=== PATIENT | male | born 1975 | race Caucasian/White ===

== ENCOUNTER 2018-11-25 11:57 | Inpatient (IN) | payer BC ==
[2018-11-25 12:51] VITALS: BMI 30.6
[2018-11-25] MEDS ORDERED: LORATADINE 10 MG TAB PO PRN (18:53)
--- NOTE | 2018-11-25 18:59 | MR ---
EXAMINATION TYPE: MR brain wo con DATE OF EXAM: 11/25/2018 COMPARISON: None HISTORY: Vertigo Standard multiplanar, multisequence MRI departmental protocol Multiplanar, multisequence images of the brain were acquired. Diffusion weighted imaging was performe d. FINDINGS: On the T2 and FLAIR images there are nodular areas of increased signal around the posterior left temporal lobe white matter adjacent to the lateral ventricle. There is a smaller 8 mm area of i ncreased signal in the right occipital lobe white matter. Largest focus in the left posterior tempora l lobe measures 15 mm. There is no midline shift. There is no mass effect. There are scattered white matter foci at the catalan-white matter junction of both temporal lobes the measure up to 5 mm. There is 9 mm cortical focus of increased signal left temporal lobe. There is 5 mm white matter high signal f ocus right parietal lobe. The left temporal lobe lesions show increased signal on the diffusion images that suggests an acute p rocess. The brainstem is intact. Cerebellum appears normal. Corpus callosum appears intact. Sella turcica power ears normal. I see no definite cortical infarct. IMPRESSION: Multiple white matter lesions as above and more noticeable in the left posterior temporal lobe. Small left temporal cortical lesion. Appearance is nonspecific. I would consider demyelinating disease and vasculitis and small vessel ischemia with acute infarct.
--- NOTE | 2018-11-25 19:00 | P.CNNES ---
History of Present Illness Consult date: 11/25/18 Reason for Consult: Dizziness Chief complaint: Dizziness History of Present Illness: REFERRING PHYSICIAN: Dr. Marcella Green HISTORY OF PRESENT ILLNESS: Thank you for allowing me to evaluate Mr. Willy Mathews. Mr. Mathews is a 43 year-old man with PMHx of DVT, pulmonary embolism, Medina's palsy presenting with a one-week history of feeling "off balance." Patient states that he was on his way to work last Sunday he started feeling a little bit off. 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 He thought it was due to sinuses causing some headache. Patient continued to feel the same although the symptoms were slightly less when he will watch TV or use his phone, he decided to go to his primary care doctor's clinic on Sunday because the symptoms were not getting better. At that time patient was taken to [facility], where he went to the emergency room and various tests were performed, and patient was discharged home that day. On Sunday night, patient got up from his bed to go to the bathroom. Patient washes hands and when he looked down in his hands, his hands looked blue. He had felt like a panic attack where he thought he was going to . His was at a camp at that time, so he called his mother who came over to his house and took him to [facility] again. Patient was discharged home that night.. Today, patient went to his primary care doctor again, recommended the patient to go to the emergency room. His symptoms have not gone worse, the patient still feels "off." Patient denies any room spinning sensation, blurry/double vision, weakness, numbness, tingling, recent sickness, fevers, ringing in his ear, ear pain, nausea/vomiting. patient denies ever having similar symptoms previously. Patient's parents are the patient's bedside. Patient had a normal delivery, full term baby. No hospitalization as a baby. Patient had some learning disability with dyslexia. Patient graduated from high school. His brother is alive and well, just has some hypotension as his medical issue. PAST MEDICAL HISTORY: DVT, pulmonary embolism, Medina's palsy PAST SURGICAL HISTORY: Appendectomy, hernia repair HOME MEDICATIONS: Eliquis 5 mg twice a day, multivitamins, loratadine ALLERGIES: Ampicillin, egg, pet dander SOCIAL HISTORY: Never smoker. Denies alcohol/drug abuse history. FAMILY HISTORY: History of clots on mother's side of the family with patient's aunt having DVT, and his grandmother and great grandparents with blood clotting disorders. No history of miscarriages and family REVIEW OF SYSTEMS: The 14 systems are reviewed and no additional points are identified compared to the review of systems documented history and physical PHYSICAL EXAMINATION: VITAL SIGNS: Temperature temperature 98.4 pulse rate 74 respiratory 17 blood pressure 116/64 O2 saturation 99% on room air GEN.: NAD, pleasant and cooperative HEENT: NCAT, sclera without icterus NECK: Supple SKIN AND EXTREMITIES: Warm to touch, no edema NEURO: MENTAL STATUS: Patient alert and oriented to self, place,. Able to name the current president. Speech fluent, able to name and repeat, following all commands readily. No right and left disorientation CRANIAL NERVES II THROUGH XII: II: Pupils are equal and reactive to light symmetrically. Visual drake are intact. III, IV, : No ptosis Extraocular movements full. Denies double vision No nystagmus. V: Facial sensation intact from V1-3. VII. face symmetric VIII: Hearing intact to finger rub bilaterally. IX, X: Symmetric palate elevation. XII: Shoulder shrug intact. XII: Tongue midline without fasciculation or atrophy. MOTOR: Normal bulk/tone. No pronator drift or tremor. Strength is 5/5 throughout all 4 extremities. SENSORY: Intact to light touch, temperature in all 4 extremities. Romberg is negative. REFLEXES: Brisk throughout. Toes are mute. Nadia's present. COORDINATION: Finger to nose intact. No dysmetria. GAIT: Normal based gait. Able to toe/heel/tandem walk. DIAGNOSTIC TESTING: LABORATORY: None available at this time IMAGING: None available at this time ASSESSMENT: Mr. Mathews is a 43 year-old man with PMHx of DVT, pulmonary embolism, Medina's palsy presenting with a one-week history of feeling "off balance." Patient with a history of DVT/PE in 2018 for which patient is on Apixaban. Patient's primary care doctor is planning to keep him on it for another year. Patient's family with a history of possible clotting disorder. Per patient, his primary care doctor has done a lot of blood workup. They thought patient may have a protein issue that was causing blood clots, but they have ruled that out. At that time, unclear etiology of patient's subjective feeling of disequilibrium. Patient denies any vertigo, double vision, and no focal deficits. His symptoms appear to have been worse when patient was driving, possible worsening with head turning. However, patient's exam shows upper motor neuron signs. Patient denies any neck pain. RECOMMENDATIONS: 1. MRI without contrast 2. MRI C-spine without contrast 3. Neurology will continue to follow Past Medical History Past Medical History: Deep Vein Thrombosis (DVT), Pulmonary Embolus (PE) Additional Past Medical History / Comment(s): blood clots a year ago, bells palsy History of Any Multi-Drug Resistant Organisms: None Reported Past Surgical History: Appendectomy, Hernia Repair Additional Past Surgical History / Comment(s): right femur fracture, hand surgery Past Anesthesia/Blood Transfusion Reactions: No Reported Reaction Past Psychological History: No Psychological Hx Reported Smoking Status: Never smoker Medications and Allergies Home Medications Medication Instructions Recorded Confirmed Type Apixaban [Eliquis] 5 mg PO BID 11/25/18 11/25/18 History Loratadine [Claritin] 10 mg PO DAILY PRN 11/25/18 11/25/18 History Multivitamins, Thera [Multivitamin 1 tab PO DAILY 11/25/18 11/25/18 History (formulary)] Allergies Allergy/AdvReac Type Severity Reaction Status Date / Time ampicillin Allergy Rash/Hives Verified 11/25/18 14:02 egg Allergy Rash/Hives Verified 11/25/18 14:02 pet dander Allergy Unknown Uncoded 11/25/18 14:02 Physical Examination - Vital Signs Vital Signs: Vital Signs Temp Pulse Resp BP Pulse Ox 11/25/18 15:30 98.4 F 74 17 116/64 99 11/25/18 12:45 98.2 F 78 17 126/78 97 11/25/18 12:42 98.2 F 78 17 126/78 97 Intake and Output 11/25/18 11/25/18 11/25/18 06:59 14:59 22:59 Other: Voiding Method Toilet Toilet # Voids 1 Weight 102.4 kg
[2018-11-25] MEDS: APIXABAN 5 MG TAB PO SCH (21:25)
[2018-11-26 06:22] LABS: Basophils % (A) 0 %; Eosinophils # (A) 0.2 k/uL (0-0.7); Eosinophils % (A) 3 %; HCT 46.1 % (39.0-53.0); HGB 15.6 gm/dL (13.0-17.5); Lymphocytes # (A) 2.2 k/uL (1.0-4.8); Lymphocytes % (A) 28 %; MCHC 33.9 g/dL (31.0-37.0); MCV 85.7 fL (80.0-100.0); Mean Platelet Volume 6.2; Monocytes # (A) 0.6 k/uL (0-1.0); Monocytes % (A) 8 %; Neutrophils # (A) 4.5 k/uL (1.3-7.7); Neutrophils % (A) 59 %; Platelet Count 277 k/uL (150-450); RBC 5.38 m/uL (4.30-5.90); RDW 13.1 % (11.5-15.5); WBC 7.6 k/uL (3.8-10.6)
[2018-11-26 06:42] LABS: African American GFR (CKD) >90 (>60 ml/min/1.73 sqM); Anion Gap 8 mmol/L; Blood Urea Nitrogen 18 mg/dL (9-20); Calcium 9.3 mg/dL (8.4-10.2); Carbon Dioxide 26 mmol/L (22-30); Chloride 103 mmol/L (98-107); Glucose 98 mg/dL (74-99); Potassium 4.3 mmol/L (3.5-5.1); Sodium 137 mmol/L (137-145)
[2018-11-26] MEDS: MULTIVITAMINS, THERA 1 EACH TAB PO SCH (09:19)
[2018-11-26] MEDS: APIXABAN 5 MG TAB PO SCH ×2 (09:19→21:34)
[2018-11-26] MEDS ORDERED: ALPRAZolam 0.25 MG TAB PO PRN (11:21)
--- NOTE | 2018-11-26 13:22 | P.PN ---
Progress Note - Text Progress Note Date: 11/26/18 SUBJECTIVE/INTERVAL EVENTS: No overnight events. Discussed with patient and his mother about the MRI brain finding. Plan going forward is to get MRI of the C-spine and thoracic spine with a possibility of getting a lumbar puncture tomorrow. PHYSICAL EXAMINATION: VITAL SIGNS: Temperature 98.2 pulse rate 61 respiratory 18 blood pressure 118/70 O2 saturation 98% on room air GEN.: NAD, pleasant and cooperative HEENT: NCAT, sclera without icterus NECK: Supple SKIN AND EXTREMITIES: Warm to touch, no edema NEURO: MENTAL STATUS: Patient alert and oriented to self, place,. Able to name the current president. Speech fluent, able to name and repeat, following all commands readily. No right and left disorientation CRANIAL NERVES II THROUGH XII: II: Pupils are equal and reactive to light symmetrically. Visual drake are intact. III, IV, : No ptosis Extraocular movements full. Denies double vision No nystagmus. V: Facial sensation intact from V1-3. VII. face symmetric VIII: Hearing intact to finger rub bilaterally. IX, X: Symmetric palate elevation. XII: Shoulder shrug intact. XII: Tongue midline without fasciculation or atrophy. MOTOR: Normal bulk/tone. No pronator drift or tremor. Strength is 5/5 throughout all 4 extremities. SENSORY: Intact to light touch, temperature in all 4 extremities. Romberg is negative. REFLEXES: Brisk throughout. Toes are mute. Nadia's present. COORDINATION: Finger to nose intact. No dysmetria. GAIT: Normal based gait. Able to toe/heel/tandem walk. DIAGNOSTIC TESTING: LABORATORY: None available at this time IMAGING: MRI brain w/o contrast 11/25/18: Multiple white matter lesions more noticeable in the left posterior temporal lobe. Small left temporal cortical lesion. Appearance is nonspecific. We'll consider demyelinating disease and vasculitis and small vessel ischemia with acute infarct. ASSESSMENT: Mr. Mathews is a 43 year-old man with PMHx of DVT, pulmonary embolism, Medina's palsy presenting with a one-week history of feeling "off balance." Patient with a history of DVT/PE in 2018 for which patient is on Apixaban. Patient's primary care doctor is planning to keep him on it for another year. Patient's family with a history of possible clotting disorder. Per patient, his primary care doctor has done a lot of blood workup. They thought patient may have a protein issue that was causing blood clots, but they have ruled that out. At that time, unclear etiology of patient's subjective feeling of disequilibrium. Patient denies any vertigo, double vision, and no focal deficits. His symptoms appear to have been worse when patient was driving, possible worsening with head turning. However, patient's exam shows upper motor neuron signs. Patient denies any neck pain. RECOMMENDATIONS: 1. MRI C-spine and T-spine without contrast; we'll consider lumbar puncture after spine imaging. 2. Neurology will continue to follow
--- NOTE | 2018-11-26 15:09 | ECHOF ---
Referral Reason:lv fx, clotting disorder MEASUREMENTS -------- HEIGHT: 182.9 cm WEIGHT: 97.1 kg BP: 120/70 IVSd: 1.1 cm (0.6 - 1.1) LVIDd: 4.7 cm (3.9 - 5.3) LVPWd: 1.2 cm (0.6 - 1.1) IVSs: 1.4 cm LVIDs: 3.5 cm LVPWs: 1.5 cm RVIDd: 5.2 cm (< 3.3) LAESV Index (A-L): 35.43 ml/m Ao Diam: 2.9 cm (2.0 - 3.7) LA Diam: 4.1 cm (2.7 - 3.8) AV Cusp: 2.1 cm (1.5 - 2.6) EPSS: 0.7 cm MV E Adam: 0.90 m/s MV DecT: 283 ms MV A Adam: 1.02 m/s MV E/A Ratio: 0.89 RAP: 5.00 mmHg RVSP: 17.83 mmHg MV EF SLOPE: 83.20 mm/s (70 - 150) MV EXCURSION: 2.19 cm (> 18.000) FINDINGS -------- Sinus rhythm. This was a technically adequate study. There is mild concentric left ventricular hypertrophy. Overall left ventricular systolic function i s normal with, an EF between 55 - 60 %. The diastolic filling pattern is normal for the age of the patient. The right ventricle is severely enlarged. Left atrium is moderately dilated by volume. The right atrium is mildly enlarged. Interatrial and interventricular septum intact. The aortic valve is trileaflet and appears structurally normal. There is no evidence of aortic regu rgitation. There is no evidence of aortic stenosis. The mitral valve leaflets are mildly thickened. Mild mitral regurgitation is present. pedunculated mass on atrial aspect of anterior mitral leaflet, consider Vegetation Mild tricuspid regurgitation present. There is no evidence of pulmonary hypertension. The right v entricular systolic pressure, as measured by Doppler, is 17.83mmHg. There is no pulmonic regurgitation present. The aortic root size is normal. The inferior vena cava was not well visualized. There is no pericardial effusion. CONCLUSIONS -------- 1. Sinus rhythm. 2. This was a technically adequate study. 3. There is mild concentric left ventricular hypertrophy. 4. Overall left ventricular systolic function is normal with, an EF between 55 - 60 %. 5. The diastolic filling pattern is normal for the age of the patient. 6. The right ventricle is severely enlarged. 7. Left atrium is moderately dilated by volume. 8. The right atrium is mildly enlarged. 9. Interatrial and interventricular septum intact. 10. The aortic valve is trileaflet and appears structurally normal. 11. There is no evidence of aortic regurgitation. 12. There is no evidence of aortic stenosis. 13. The mitral valve leaflets are mildly thickened. 14. Mild mitral regurgitation is present. 15. Mild tricuspid regurgitation present. 16. There is no evidence of pulmonary hypertension. 17. The right ventricular systolic pressure, as measured by Doppler, is 17.83mmHg. 18. There is no pulmonic regurgitation present. 19. The aortic root size is normal. 20. The inferior vena cava was not well visualized. 21. There is no pericardial effusion. [employer] HAND: Yarelis Gleason RDCS
[2018-11-26] MEDS ORDERED: LORazepam 2 MG/ML INJ IV STA (16:27)
--- NOTE | 2018-11-26 23:38 | MR ---
EXAMINATION TYPE: MR cspine/tspine/lspine wo con DATE OF EXAM: 11/26/2018 COMPARISON: MRI brain 11/25/2018 HISTORY: dizziness; upper motor neuron signs bilaterally TECHNIQUE: Multiplanar, multisequence imaging of the entire spine is performed without IV contrast. FINDINGS: INTRAMEDULLARY: The spinal cord has normal morphology and signal characteristics on all sequences. INTRAMEDULLARY/INTRADURAL: Unremarkable. EXTRAMEDULLARY: There are mild multilevel spondylosis changes, without candidate for nerve root impin gement. There is no focal disc extrusion/protrusion. There are a few scattered T1 hyperintense and T2 hyperintense foci within the bone marrow of the spin e, consistent with incidental hemangiomas. OTHER: Unremarkable. IMPRESSION: No acute process.
[2018-11-27] MEDS: MULTIVITAMINS, THERA 1 EACH TAB PO SCH (08:33)
[2018-11-27] MEDS: APIXABAN 5 MG TAB PO SCH ×2 (08:33→19:34)
--- NOTE | 2018-11-27 08:57 | HP ---
HISTORY AND PHYSICAL DATE OF SERVICE: 11/26/2018 CHIEF COMPLAINT: A 43-year-old white male, past medical history of DVT, pulmonary embolism, Medina's palsy, history of feeling off-balance with dizziness, got put in the hospital overnight to find out what is going on. Rule out stroke. MRI shows positive stroke, workup is pending at this time causing stroke imbalance. PAST MEDICAL HISTORY: DVT, pulmonary embolism, Medina's palsy. SURGICAL HISTORY: Appendectomy, hernia repair. HOME MEDICATIONS: 1. Eliquis 5 mg b.i.d. 2. Multivitamins. 3. Loratadine. ALLERGIES: AMPICILLIN. alcohol, drugs, smoking. 14 POINT REVIEW OF SYSTEMS: Negative except for mentioned above. PHYSICAL EXAMINATION: Blood pressure 110 to 120s/60s to 70s, O2 98% on room air, pulse 70s to 80s, temp 98. GENERAL: No acute distress. HEENT: Normocephalic, atraumatic. SKIN: Warm, dry to touch. Cranial nerves appear to be intact. Strength is 5/5 for extremities. Coordination shows no dysmetria on [id number] and tap. ASSESSMENT: 1. History deep venous thrombosis, acute stroke seen on MRI. 2. History of Medina's palsy, pulmonary embolism, deep venous thrombosis. RECOMMENDATION: 1. Workup including possible MALCOM, echo, carotid will also be done. 2. Await for Cardiology and Neurology input. AKUA / CARROL: [id number] /
--- NOTE | 2018-11-27 09:25 | P.CRDCN ---
History of Present Illness Consult date: 11/27/18 Requesting physician: Sekou Devries Reason for Consult (text): Possible mitral valve vegetation Chief complaint: Dizziness History of present illness: Is a 43-year-old gentleman with no prior documented history of hypertension, no diabetes, no hyperlipidemia, he is a nonsmoker. He does have history of DVT and PE approximately one year ago, was treated at [facility] and initiated on Eliquis. He was never determined exactly why the patient developed blood clots at that time. He presented to the hospital on this admission with symptoms of dizziness which started approximately one week ago. The dizziness persisted over that weekend, and patient became extremely fatigued and tired, he was unable to do his usual activities without becoming exhausted. Patient states at one point he became so dizzy, felt off balance, and felt as though he wouldpass out , he called EMS and was brought to the hospital for further evaluation and treatment. The patient underwent an MRI of the brain which revealed multiple white matter lesions more noticeable in the left posterior temporal lobe. Small left temporal cortical lesion. Appearance is nonspecific. Consideration of a demyelinating disease and vasculitis as well as small vessel ischemia with acute infarct. An MRI of the spine was also performed which did not reveal any acute process. An echocardiogram with Doppler study was performed which revealed a normal left ventricular systolic function. The mitral valve leaflets are mildly thickened, mild mitral regurgitation, pedunculated mass noted on the atrial aspect of the anterior mitral leaflet, consider vegetation. Because of this finding on echocardiogram cardiology consultation was requested. Patient denies any recent fever or chills, he is a nonsmoker, does not drink and does not use any type of drugs. Laboratory data reviewed, white blood cell count 7.6, hemoglobin 15.6, platelet count 277. Sodium 137, potassium 4.3, BUN 18 and creatinine 1.1. Blood pressure 116/60 with a heart rate in the 70s, temperature 98.4 is 99% on room air. Past Medical History Past Medical History: Deep Vein Thrombosis (DVT), Pulmonary Embolus (PE) Additional Past Medical History / Comment(s): blood clots a year ago, bells palsy History of Any Multi-Drug Resistant Organisms: None Reported Past Surgical History: Appendectomy, Hernia Repair Additional Past Surgical History / Comment(s): right femur fracture, hand myles rikki Past Anesthesia/Blood Transfusion Reactions: No Reported Reaction Past Psychological History: No Psychological Hx Reported Smoking Status: Never smoker Medications and Allergies Home Medications Medication Instructions Recorded Confirmed Type Apixaban [Eliquis] 5 mg PO BID 11/25/18 11/25/18 History Loratadine [Claritin] 10 mg PO DAILY PRN 11/25/18 11/25/18 History Multivitamins, Thera [Multivitamin 1 tab PO DAILY 11/25/18 11/25/18 History (formulary)] Allergies Allergy/AdvReac Type Severity Reaction Status Date / Time ampicillin Allergy Rash/Hives Verified 11/25/18 14:02 egg Allergy Rash/Hives Verified 11/25/18 14:02 pet dander Allergy Unknown Uncoded 11/25/18 14:02 Physical Exam Vitals: Vital Signs Temp Pulse Resp BP Pulse Ox 11/27/18 08:33 98.1 F 69 16 110/58 100 11/27/18 04:45 98.2 F 75 12 129/61 98 11/26/18 23:45 98.6 F 72 16 114/57 100 11/26/18 21:30 98.2 F 72 16 126/59 98 11/26/18 16:00 78 16 131/63 100 11/26/18 15:10 70 16 11/26/18 12:00 98.2 F 65 16 125/65 99 Intake and Output 11/26/18 11/27/18 11/27/18 22:59 06:59 14:59 Other: Voiding Method Toilet Toilet # Voids 3 1 Weight 101.4 kg PHYSICAL EXAMINATION: GENERAL: 83-year-old gentleman in no acute distress at the night HEENT: Head is atraumatic, normocephalic. Pupils equal, round. Sclera anicteric. Conjunctiva are clear. Mucous membranes of the mouth are moist. Neck is supple. There is no elevated jugular venous pressure. No carotid bruit is heard. HEART EXAMINATION: Heart S1, S2 normal. No murmur or gallop heard. CHEST EXAMINATION: Lungs are clear to auscultation and precussion. No chest wall tenderness is noted on palpation or with deep breathing. ABDOMEN: Soft, nontender. Bowel sounds are heard. No organomegaly noted. EXTREMITIES: 2+ peripheral pulses with no evidence of peripheral edema and no calf tenderness noted. NEUROLOGIC patient is awake, alert and oriented 3 . . Results 11/26/18 05:56 11/26/18 05:56 Current Medications Generic Name Dose Route Start Last Admin Trade Name Freq PRN Reason Stop Dose Admin Alprazolam 0.25 mg 11/26/18 11:21 Xanax PO Q8H PRN Anxiety Apixaban 5 mg 11/25/18 21:00 11/27/18 08:33 Eliquis PO 5 mg BID JAYY Administration Loratadine 10 mg 11/25/18 18:53 Claritin PO DAILY PRN Allergy Symptoms Multivitamins 1 each 11/26/18 09:00 11/27/18 08:33 Theragran PO 1 each DAILY JAYY Administration Intake and Output 11/26/18 11/27/18 11/27/18 22:59 06:59 14:59 Other: Voiding Method Toilet Toilet # Voids 3 1 Weight 101.4 kg 11/26/18 05:56 11/26/18 05:56 EKG Interpretations (text) No EKG performed Assessment and Plan Plan: Assessment and plan #1 symptoms of dizziness, unsteady gait, fatigue. MRI of the brain showed multiple white matter lesions more noticeable in the left posterior temporal lobe. Small left temporal cortical lesion. Appearance is nonspecific. Possi ble demyelinating disease and vasculitis or small vessel ischemia with acute infarct, neurology is following. #2 history of Medina's palsy #3 history of pulmonary embolism and DVT diagnosed one year ago, patient is on Eliquis for anticoagulation #4 possible vegetation on the mitral valve leaflet Plan Patient did have an echocardiogram with Doppler study performed which revealed a normal left ventricular systolic function, there is a mass noted on the anterior leaflet of the mitral valve, pedunculated, suspicion for possible vegetation. has had no recent fever or infection. Patient has been advised to undergo a transesophageal echocardiographic study, as well as the risks and the benefits were explained to the patient in detail and he is willing to proceed. DNP note has been reviewed, I agree with a documented findings and plan of care. Patient was seen and examined.
--- NOTE | 2018-11-27 13:02 | CT ---
EXAMINATION TYPE: CT angio head neck DATE OF EXAM: 11/27/2018 HISTORY: vertigo COMPARISON: None CT DLP: 477.1 mGycm. Automated Exposure Control for Dose Reduction was Utilized. TECHNIQUE: CTA scan of the neck is performed with IV Contrast, patient injected with 50 mL of Isovue 370, axial images are obtained, coronal and sagittal reformatted images are reviewed. Three-D recons tructed images are created on an independent workstation and reviewed. FINDINGS: Carotid/Vascular Structures: Left vertebral artery arises from the arch of aorta. Bilateral common ca rotid arteries are patent without significant stenosis, occlusion, dissection or aneurysm. Internal c arotid arteries are patent without stenosis, occlusion, dissection or aneurysm. Carotid arteries are patent. Bilateral vertebral arteries are slightly diminutive in nature, but appe ar patent. Basilar artery is small, but appears patent. [place] of [place] is patent. Asymmetric narrow ing is seen in the mid left 1 and segment suggestive of moderate stenosis. Other: No evidence of enhancing lesion within the brain. Small left frontal subcutaneous sebaceous cy st. Otherwise paranasal sinuses and mastoid air cells are clear. Orbits are intact. A few calcificati ons and mild enlargement of the right adenoid tonsil with effacement of the right oral pharyngeal rec ess. Prominent but nonenlarged bilateral cervical chain lymph nodes. Multilevel cervical spondylosis. IMPRESSION: No evidence of dissection, aneurysm or occlusion. Moderate mid left M1 stenosis likely on basis of atherosclerotic disease, but vasculitis may also be in the differential. Slightly enlarged and asymmetric right adenoid and tonsil with prominence of the cervical chain lymph nodes. Consider direct visualization and ENT consultation.
--- NOTE | 2018-11-27 13:47 | P.PN ---
Progress Note - Text Progress Note Date: 11/27/18 SUBJECTIVE/INTERVAL EVENTS: No overnight events. is at bedside. Answered all questions. Ore Roaster came by this morning, explained to the family that patient may have pushed patients. Pending transesophageal echocardiogram. PHYSICAL EXAMINATION: VITAL SIGNS: Temperature 98.1 pulse rate 69 respiratory 16 blood pressure 110/58 O2 saturation 100 on room air GEN.: NAD, pleasant and cooperative HEENT: NCAT, sclera without icterus NECK: Supple SKIN AND EXTREMITIES: Warm to touch, no edema NEURO: MENTAL STATUS: Patient alert and oriented to self, place,. Able to name the current president. Speech fluent, able to name and repeat, following all commands readily. No right and left disorientation CRANIAL NERVES II THROUGH XII: II: Pupils are equal and reactive to light symmetrically. Visual drake are intact. III, IV, : No ptosis Extraocular movements full. Denies double vision No nystagmus. V: Facial sensation intact from V1-3. VII. face symmetric VIII: Hearing intact to finger rub bilaterally. IX, X: Symmetric palate elevation. XII: Shoulder shrug intact. XII: Tongue midline without fasciculation or atrophy. MOTOR: Normal bulk/tone. No pronator drift or tremor. Strength is 5/5 throughout all 4 extremities. SENSORY: Intact to light touch, temperature in all 4 extremities. Romberg is negative. REFLEXES: Brisk throughout. Toes are mute. Nadia's present. COORDINATION: Finger to nose intact. No dysmetria. GAIT: Normal based gait. Able to toe/heel/tandem walk. DIAGNOSTIC TESTING: LABORATORY: WBC 7.6 hemoglobin 15.6 platelets 277 sodium 137 potassium 4.3 chloride 103 bicarb 26 BUN 18 creatinine 1.14 glucose 98 IMAGING: MRI brain w/o contrast 11/25/18: Multiple white matter lesions more noticeable in the left posterior temporal lobe. Small left temporal cortical lesion. Appearance is nonspecific. We'll consider demyelinating disease and vasculitis and small vessel ischemia with acute infarct. MRI c-spine/t-spine 11/26/18: Unremarkable. Transthoracic echocardiogram 11/26/2018: Since rhythm. Mild concentric left ventricular hypertrophy. EF 55-60% right ventricle is severely enlarged. Left atrium is moderately dilated by volume. Right atrium is mildly enlarged. Mild mitral and tricuspid regurgitation is present. No evidence of pulmonary hypertension. Mitral valves are mildly thickened. CT angiography head and neck within without contrast 11/27/2018: No evidence of dissection, aneurysm or occlusion. Moderate mid left M1 stenosis likely on basis atherosclerotic disease, but vasculitis may also be in the differential. ASSESSMENT: Mr. Mathews is a 43 year-old man with PMHx of DVT, pulmonary embolism, Medina's palsy presenting with a one-week history of feeling "off balance." Patient with a history of DVT/PE in 2018 for which patient is on Apixaban. Patient's primary care doctor is planning to keep him on it for another year. Patient's family with a history of possible clotting disorder. Per patient, his primary care doctor has done a lot of blood workup. They thought patient may have a protein issue that was causing blood clots, but they have ruled that out. At that time, unclear etiology of patient's subjective feeling of disequilibrium. Patient denies any vertigo, double vision, and no focal deficits. His symptoms appear to have been worse when patient was driving, possible worsening with head turning. However, patient's exam shows upper motor neuron signs. Patient denies any neck pain. MRI C-spine and T-spine without contrast unremarkable. CT angiogram showing moderate mid left M1 stenosis, could be atherosclerotic versus vasculitic. Patient's transthoracic echocardiogram showed multiple enlarged chambers. Patient is pending transesophageal echocardiogram. RECOMMENDATIONS: 1. Recommend rheumatology consult (will order GT, c-ANCA, ESR, CRP) 2. Continue with Apixaban 5 mg twice a day 3. Neurology will continue to follow
--- NOTE | 2018-11-27 14:53 | P.PN ---
Subjective Progress Note Date: 11/27/18 A 43-year-old gentleman admitted with fatigue, bilateral arms and legs heaviness, dizziness. Evaluated by neurology with recommendations noted. Brain MRI reported multiple white matter lesions more noticeable on the left posterior temporal lobe, small left temporal cortical lesion with nonspecific appearance, possible demyelinating disease, vasculitis, small vessel ischemia with possible acute infarct. EF reported LV function EF between 55-60%, mild mitral regurgitation, mitral valve leaflets mildly thickened, with vegetation/pedunaclated mass on atrial aspect of the anterior mitral leaflet. Denies recent illnesses/infections. Afebrile. Cardiology consulted. MALCOM ordered. CT angiogram of head and neck pending.VSS, maintaining O2 sats in the high 90s on room air. Objective - Vital Signs Vital signs: Vital Signs Temp 98.1 F 11/27/18 08:33 Pulse 69 11/27/18 08:33 Resp 16 11/27/18 08:33 BP 110/58 11/27/18 08:33 Pulse Ox 100 11/27/18 08:33 Intake & Output 11/26/18 11/27/18 11/27/18 18:59 06:59 18:59 Intake Total 1560 Balance 1560 Weight 101.4 kg Intake: Oral 1560 Other: Voiding Method Toilet Toilet # Voids 1 1 # Bowel Movements 0 - Exam PHYSICAL EXAM: VITAL SIGNS: As above GENERAL: Sitting up in bed, no acute distress HEENT: Conjunctivae normal. eyes normal. Oral mucosa moist NECK: No JVD. No thyroid enlargement. No LNs CARDIOVASCULAR: S1, S2 regular.. No murmur RESPIRATION: Breath sounds diminished in the bases. No rhonchi or crackles. ABDOMEN: Soft, nontender. No guarding. no masses palpable.Bowel sounds heard. LEGS: No edema. no swelling PSYCHIATRY: Alert and oriented X3, mood and affect normal. NERVOUS SYSTEM: Cranial N 2-12 grossly normal. Moves all 4 limbs. Diffuse weakness No focal deficits. Strength and sensation grossly intact. Skin: no lesions, no rash Lymphatic system. No LN neck axilla or groin. - Labs CBC & Chem 7: 11/26/18 05:56 11/26/18 05:56 Assessment and Plan Assessment: -Generalized weakness ,fatigue, bilateral arms and legs heaviness with gait dysfunction , dizziness. Brain MRI reported multiple white matter lesions more noticeable on the left posterior temporal lobe, small left temporal cortical lesion with nonspecific appearance, possible demyelinating disease, vasculitis, small vessel ischemia with possible acute infarct. 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 No statin secondary to bilateral lower extremity weakness. CT angiogram pending , further neurology recommendations pending. Hematology ordered for potential clotting disorder.MALCOM pending as per cardiology. ID consulted. Further recommendations to follow. Prognosis guarded given multiple complex medical issues. The impression and plan of care has been dictated as directed. : I performed a history and examination of this patient, discussed the same with the dictator. I agree with the dictator's note ,documented as a scribe. Any additional findings or plans will be noted.
--- NOTE | 2018-11-27 16:46 | P.CONS ---
History of Present Illness - Reason for Consult Consult date: 11/27/18 clotting disorder Requesting physician: Naima Ribeiro - Chief Complaint dizziness, off balance - History of Present Illness Pt is a very pleasant 43 old male who was seen in consult at [facility] 08/2017 when he presented with c/o lt pain x 9 months. He had symptoms of chest tightness, cough with streaks of blood 1 week prior to admit, treated for pneumonia, did well but subsequently the lt foot pain progressed and LLE swelled, he was diagnosed with LLE DVT and Bilateral PE, he has been on eliquis since, states he takes regularly. Pt is currently admitted for stroke symptoms, we have been asked to see re: coagulopathy. Pt never followed up in the office for hypercoaguable work up Review of Systems 14 point ROS is negative except as stated in HPI Past Medical History Past Medical History: Deep Vein Thrombosis (DVT), Pulmonary Embolus (PE) Additional Past Medical History / Comment(s): blood clots a year ago, bells palsy History of Any Multi-Drug Resistant Organisms: None Reported Past Surgical History: Appendectomy, Hernia Repair Additional Past Surgical History / Comment(s): right femur fracture, hand surgery Past Anesthesia/Blood Transfusion Reactions: No Reported Reaction Past Psychological History: No Psychological Hx Reported Smoking Status: Never smoker Past Alcohol Use History: None Reported Past Drug Use History: None Reported Medications and Allergies Home Medications Medication Instructions Recorded Confirmed Type Apixaban [Eliquis] 5 mg PO BID 11/25/18 11/25/18 History Loratadine [Claritin] 10 mg PO DAILY PRN 11/25/18 11/25/18 History Multivitamins, Thera [Multivitamin 1 tab PO DAILY 11/25/18 11/25/18 History (formulary)] Allergies Allergy/AdvReac Type Severity Reaction Status Date / Time ampicillin Allergy Rash/Hives Verified 11/25/18 14:02 egg Allergy Rash/Hives Verified 11/25/18 14:02 pet dander Allergy Unknown Uncoded 11/25/18 14:02 Physical Exam Vitals: Vital Signs Temp Pulse Resp BP Pulse Ox 11/27/18 12:00 98.2 F 66 16 128/61 98 11/27/18 08:33 98.1 F 69 16 110/58 100 11/27/18 04:45 98.2 F 75 12 129/61 98 08/13/19 23:45 98.6 F 72 16 114/57 100 11/26/18 21:30 98.2 F 72 16 126/59 98 Intake and Output 11/27/18 11/27/18 11/27/18 06:59 14:59 22:59 Intake Total 360 Balance 360 Intake: Oral 360 Other: Voiding Method Toilet # Voids 1 2 Weight 101.4 kg - Constitutional General appearance: average body habitus, cooperative, no acute distress - EENT Eyes: anicteric sclerae, EOMI, dentition normal, normal appearance ENT: hearing grossly normal, normal oropharynx - Neck Neck: no lymphadenopathy - Respiratory Respiratory: bilateral: CTA - Cardiovascular Rhythm: regular Heart sounds: normal: S1, S2 Abnormal Heart Sounds: no systolic murmur, no diastolic murmur, no rub, no S3 Gallop, no S4 Gallop, no click, no other leg Peripheral Edema: bilateral: None - Gastrointestinal General gastrointestinal: no absent bowel sounds, no decreased bowel sounds, no distended, no hepatomegaly, no hyperactive bowel sounds, normal bowel sounds, no organomegaly, no rigid, no scaphoid, soft, no splenomegaly, no tenderness, no umbilical hernia, no ventral hernia - Integumentary Integumentary: normal - Neurologic Neurologic: CNII-XII intact - Musculoskeletal Musculoskeletal: strength equal bilaterally - Psychiatric Psychiatric: A&O x's 3, appropriate affect, intact judgment & insight Results CBC & Chem 7: 11/26/18 05:56 11/26/18 05:56 Comments: MRI spine, ECHO and MRI brain reports reviewed Assessment and Plan (1) Deep vein thrombosis (DVT) of left lower extremity Current Visit: Yes Status: Chronic Code(s): I82.402 - ACUTE EMBOLISM AND THOMBOS UNSP DEEP VEINS OF L LOW EXTREM SNOMED Code(s): 779007116 (2) Pulmonary emboli Current Visit: Yes Status: Chronic Code(s): I26.99 - OTHER PULMONARY EMBOLISM WITHOUT ACUTE COR PULMONALE SNOMED Code(s): 09590726 Plan: Cont with eliquis for treatment of the above for now Reviewed with pt and testing that has been ordered (MALCOM looking for PFO, further Neuro work up to confirm infarct vs other differentials, and ID for findings on ECHO that could suggest vegetation). If pt has PFO then doppler of the lower extremities will be needed to look for new clot. Concern in this case would also be for failure of eliquis. Will await results of testing If pt has no PFO and evidence of ischemic stroke then pt will need to be on antiplatelet therapy. If pt has evidence of vegetation then ID will treat him and his symptoms could be related to a septic emboli. Pending work up, Hematology recommendations will follow
--- NOTE | 2018-11-27 17:24 | CONS ---
CONSULTATION DATE OF SERVICE: 11/27/2018. REASON FOR CONSULTATION: Mitral valve vegetation with question of infective endocarditis. HISTORY OF PRESENT ILLNESS: The patient is a 43-year-old male with past medical history significant for DVT, pulmonary embolism, and Medina's palsy. The patient presented to the [facility] ER 2 days ago on 11/25/2018 with feeling off balance. His symptoms have been going on for about a week, started on Sunday prior to presentation to the hospital. The patient still has been feeling weak and dizzy and off-balance. Denies having any headache or URI symptoms. No chest pain, shortness of breath or cough. No nausea, vomiting. No abdominal pain or any diarrhea. With these symptoms, the patient apparently was initially evaluated at [facility]. We did have some testing done and everything came back negative. The patient discharged home. The patient subsequently has been admitted at this facility. On presentation to the hospital, the patient did have an MRI of the brain completed which shows multiple white matter lesion more noticeable in the left posterior temporal lobe. Small left temporal cortical lesion, nonspecific with consideration for demyelinating vasculitis versus ischemia. The patient also had an echocardiogram completed with concern for mild mitral regurgitation and pedunculated mass on the atrial aspect of anterior mitral leaflet consider vegetation that prompted this infectious disease consultation. The patient also did have an MRI of the cervical, thoracic and lumbar spine which was reported to be negative. This patient has been afebrile throughout his hospital stay over the last 48 hours and his white count has been normal with no left shift. REVIEW OF SYSTEMS: Positive points have been mentioned in HPI. Rest of the systems are negative. PAST MEDICAL HISTORY: Past medical history of DVT, pulmonary embolism, and Medina's palsy. PAST SURGICAL HISTORY: Appendectomy and hernia repair. SOCIAL HISTORY: Denies smoking, drinking, or drug use. Currently working at [employer]. FAMILY HISTORY: Mother has family with a history of DVT. ALLERGIES: TO AMPICILLIN AND VANCOMYCIN. MEDICATIONS: The patient is currently on Claritin, Eliquis, Xanax and Theragran. PHYSICAL EXAMINATION: Blood pressure 128/61 with a pulse of 66, temperature 98.2. He is 98% on room air, General description is a middle aged male up in the bed in no distress. No tachypnea or accessory muscles of respiration use. HEENT: Shows no pallor or scleral icterus. Oral mucous membranes dry. No pharyngeal erythema or thrush. Neck: Trachea central. No thyromegaly. Lungs unlabored breathing. Clear to auscultation anteriorly. Heart S1, S2. Regular rate and rhythm. No murmur. ABDOMEN: Soft. No tenderness. No guarding and no rigidity. Extremities: No edema of the feet. Skin examination: No rash or mass palpable. NEUROLOGICAL: Patient is awake, alert and oriented times three. Mood and affect normal. LABS: Hemoglobin is 6.1, white count 7.6, BUN of 18, creatinine 1.14. No cultures during this admission. DIAGNOSTIC IMPRESSION AND PLAN: Patient admitted to the hospital with feeling dizzy and off balance. In addition the patient already did have workup that has been suspicious for pedunculated mass on the mitral valve. Clinically, the patient is not behaving as endocarditis in this patient with no fever or elevated white count. No stigmata of the endocarditis and no risk factor for infection either with no recent dental workup and no history of any dental workup or drug use. PLAN: 1. Blood culture will be obtained times three. 2. We will also obtain a sedimentation rate and CRP. 3. We will hold on systemic antibiotic therapy as clinically suspicion is low for infective endocarditis and will wait for the MALCOM to be completed. 4. at the bedside. Their questions and concerns were answered. Thank you for this consultation. Will follow this patient along with you. MMODL / IJN: [id number] / FORREST
[2018-11-28 07:07] LABS: Basophils % (A) 0 %; Eosinophils # (A) 0.2 k/uL (0-0.7); Eosinophils % (A) 3 %; HCT 44.4 % (39.0-53.0); HGB 15.2 gm/dL (13.0-17.5); Lymphocytes # (A) 1.9 k/uL (1.0-4.8); Lymphocytes % (A) 27 %; MCH 29.5 pg (25.0-35.0); MCHC 34.2 g/dL (31.0-37.0); MCV 86.1 fL (80.0-100.0); Mean Platelet Volume 6.1; Monocytes # (A) 0.6 k/uL (0-1.0); Monocytes % (A) 8 %; Neutrophils # (A) 4.1 k/uL (1.3-7.7); Neutrophils % (A) 60 %; Platelet Count 243 k/uL (150-450); RBC 5.16 m/uL (4.30-5.90); RDW 12.9 % (11.5-15.5); WBC 6.9 k/uL (3.8-10.6)
[2018-11-28 07:29] LABS: African American GFR (CKD) 87 (>60 ml/min/1.73 sqM); Anion Gap 8 mmol/L; Blood Urea Nitrogen 15 mg/dL (9-20); Calcium 9.1 mg/dL (8.4-10.2); Carbon Dioxide 26 mmol/L (22-30); Chloride 105 mmol/L (98-107); Glucose 96 mg/dL (74-99); Potassium 4.2 mmol/L (3.5-5.1); Sodium 139 mmol/L (137-145)
[2018-11-28 07:48] LABS: C Reactive Protein <5.0 mg/L (<10.0)
[2018-11-28] MEDS: MULTIVITAMINS, THERA 1 EACH TAB PO SCH (08:13)
[2018-11-28] MEDS: APIXABAN 5 MG TAB PO SCH ×2 (08:13→20:05)
[2018-11-28 09:09] LABS: Erythrocyte Sedimentation Rate 2 mm/hr (0-15)
[2018-11-28] MEDS ORDERED: fentaNYL (PF) 50 MCG/ML 2 ML AMP ONE (10:42)
[2018-11-28] MEDS: BENZOCAINE SPRAY 1 CAN TOPICAL ONE ×3 (11:10→12:21)
[2018-11-28] MEDS ORDERED: SODIUM CHLORIDE 0.9% 500 ML 500 ML IV ONE (11:10)
[2018-11-28] MEDS: fentaNYL (PF) 50 MCG/ML 2 ML AMP IVP ONE ×2 (11:28→11:34)
[2018-11-28] MEDS ORDERED: MIDAZOLAM (PF) 2 MG/2 ML VIAL IVP ONE (11:28)
[2018-11-28] MEDS: MIDAZOLAM (PF) 2 MG/2 ML VIAL IVP ONE ×2 (11:30→11:34)
--- NOTE | 2018-11-28 11:54 | P.PN ---
Progress Note - Text Progress Note Date: 11/28/18 SUBJECTIVE/INTERVAL EVENTS: No acute overnight events. Patient waiting for MALCOM at this time. Discussed with patient and mother about CTA of head and neck results. PHYSICAL EXAMINATION: VITAL SIGNS: Temperature 98.4 pulse rate 64 respiratory rate 16 blood pressure 98/55 O2 saturation 96% on nasal cannula 2 L GEN.: NAD, pleasant and cooperative HEENT: NCAT, sclera without icterus NECK: Supple SKIN AND EXTREMITIES: Warm to touch, no edema NEURO: MENTAL STATUS: Patient alert and oriented to self, place,. Able to name the current president. Speech fluent, able to name and repeat, following all commands readily. No right and left disorientation CRANIAL NERVES II THROUGH XII: II: Pupils are equal and reactive to light symmetrically. Visual drake are intact. III, IV, : No ptosis Extraocular movements full. Denies double vision No nystagmus. V: Facial sensation intact from V1-3. VII. face symmetric VIII: Hearing intact to finger rub bilaterally. IX, X: Symmetric palate elevation. XII: Shoulder shrug intact. XII: Tongue midline without fasciculation or atrophy. MOTOR: Normal bulk/tone. No pronator drift or tremor. Strength is 5/5 throughout all 4 extremities. SENSORY: Intact to light touch, temperature in all 4 extremities. Romberg is negative. REFLEXES: Brisk throughout. Toes are mute. Nadia's present. COORDINATION: Finger to nose intact. No dysmetria. GAIT: Normal based gait. Able to toe/heel/tandem walk. DIAGNOSTIC TESTING: LABORATORY: WBC 7.6 hemoglobin 15.6 platelets 277 sodium 137 potassium 4.3 chloride 103 bicarb 26 BUN 18 creatinine 1.14 glucose 98 CRP < 5.0 GT negative IMAGING: MRI brain w/o contrast 11/25/18: Multiple white matter lesions more noticeable in the left posterior temporal lobe. Small left temporal cortical lesion. Appearance is nonspecific. We'll consider demyelinating disease and vasculitis and small vessel ischemia with acute infarct. MRI c-spine/t-spine 11/26/18: Unremarkable. Transthoracic echocardiogram 11/26/2018: Since rhythm. Mild concentric left ventricular hypertrophy. EF 55-60% right ventricle is severely enlarged. Left atrium is moderately dilated by volume. Right atrium is mildly enlarged. Mild mitral and tricuspid regurgitation is present. No evidence of pulmonary hypertension. Mitral valves are mildly thickened. CT angiography head and neck within without contrast 11/27/2018: No evidence of dissection, aneurysm or occlusion. Moderate mid left M1 stenosis likely on basis atherosclerotic disease, but vasculitis may also be in the differential. ASSESSMENT: Mr. Mathews is a 43 year-old man with PMHx of DVT, pulmonary embolism, Medina's palsy presenting with a one-week history of feeling "off balance." Patient with a history of DVT/PE in 2018 for which patient is on Apixaban. Patient's primary care doctor is planning to keep him on it for another year. Patient's family with a history of possible clotting disorder. Per patient, his primary care doctor has done a lot of blood workup. They thought patient may have a protein issue that was causing blood clots, but they have ruled that out. At that time, unclear etiology of patient's subjective feeling of disequilibrium. Patient denies any vertigo, double vision, and no focal deficits. His symptoms appear to have been worse when patient was driving, possible worsening with head turning. However, patient's exam shows upper motor neuron signs. Patient denies any neck pain. MRI C-spine and T-spine without contrast unremarkable. Diagnosis of multiple sclerosis less likely. CT angiogram showing moderate mid left M1 stenosis, could be atherosclerotic versus vasculitic. Patient's transthoracic echocardiogram showed multiple enlarged chambers. Patient is pending transesophageal echocardiogram. RECOMMENDATIONS: 1. GT/CRP unremarkable; c-ANCA, ESR pending 2. Continue with Apixaban 5 mg twice a day 3. Would consider hematology consultation for a more thorough hypercoagulable workup. 4. Neurology will continue to follow
[2018-11-28] MEDS ORDERED: LIDOCAINE 1% INJ 10MG/ML (20 ML MDV) ONE (12:14)
[2018-11-28] MEDS ORDERED: PROPOFOL 10 MG/ML 20 ML VIAL IV ONE (12:14)
--- NOTE | 2018-11-28 13:10 | ECHOT ---
TRANSESOPHAGEAL ECHOCARDIOGRAM INDICATION: Rule out endocarditis PERFORMING PHYSICIAN: Compa Olivo MD PROCEDURE PERFORMED: Transesophageal echocardiogram. INDICATION: Rule out endocarditis. SEDATION: The procedure was performed under general anesthesia. PROCEDURE DESCRIPTION: After obtaining an informed consent, explaining the procedure, benefits, risks, complications and alternatives, the patient was brought to the transesophageal echocardiogram suite. A pulse oximetry and heart rate monitors were attached to the patient prior to the procedure. The patient's throat was sprayed using lidocaine locally. Following that, the patient was turned into left lateral position. A bite guard was placed and the patient was then sedated with the above doses of Versed and fentanyl in divided doses. Following that, the transesophageal echocardiogram probe was advanced through the bite guard into the mid esophagus where 2-D echocardiogram images as well as color Doppler images of various cardiac structures were obtained. We evaluated the interatrial septum using 2-D echocardiogram, color Doppler, and contrast study. The procedure was completed. There were no complications. FINDINGS: The left ventricular dimension and systolic function appeared to be within normal limits. The ejection fraction appeared to be in the range of 50% to 55%. The right ventricle appeared to be mildly dilated. The left atrium and right atrium are dilated. Left atrial appendage appeared to be free from any thrombus. The interatrial septum appeared to be intact. The aortic valve is trileaflet valve without stenosis or regurgitation. The mitral valve was well interrogated. The anterior mitral leaflet appeared to have an echodensity consistent with possible vegetation and possible Libman- Sacks vegetations. There was moderate mitral regurgitation seen. No evidence of any perforation seen. The tricuspid valve and pulmonic valve appeared to be within normal limits. CONCLUSION: 1. An echodensity was identified on the second scallops of the anterior mitral leaflet consistent likely with endocarditis. 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 2. There was evidence of moderate mitral regurgitation. 3. Trileaflet aortic valve without stenosis or regurgitation. 4. Normal tricuspid valve and pulmonic valve. 5. Normal left ventricular dimension and systolic function. 6. Dilated right ventricle with normal function. 7. Normal left atrial appendage. 8. Intact interatrial septum. 9. No evidence of pericardial effusion. MMODL / IJN: [id number] /
--- NOTE | 2018-11-28 13:43 | PN ---
PROGRESS NOTE DATE OF SERVICE: 11/28/2018 REASON FOR FOLLOWUP: Abnormal 2D echo with concern for mitral valve vegetation. INTERVAL HISTORY: The patient is currently afebrile. Did mention slight dizziness last night, but doing well this morning. The patient denies having any chest pain or shortness of breath or cough. No abdominal pain. No diarrhea. PHYSICAL EXAMINATION: On examination, blood pressure 91/55 with a pulse of 61, temperature 98. He is 92% on 2 L nasal cannula. General description is a young male up in the room in no distress. RESPIRATORY SYSTEM: Unlabored breathing, clear to auscultation anteriorly. HEART: S1, S2. Regular rate and rhythm. ABDOMEN: Soft, no tenderness. EXTREMITIES: No edema of the feet. LABS: Hemoglobin 15.2, white count 6.9. CRP less than 5 and a Sed rate of 2. Blood culture negative so far. DIAGNOSTIC IMPRESSION AND PLAN: Patient admitted to the hospital with generalized weakness, no energy, and feeling dizzy with an echocardiogram that has been read for possible mitral valve vegetation. The patient is clinically not behaving as endocarditis. No fever. White count normal. Sedimentation rate normal. normal and culture negative so far. Will await the MALCOM. Hold on any empiric systemic antibiotic therapy. Continue with supportive care. MMODL / IJN: [id number] /
--- NOTE | 2018-11-28 16:30 | P.PN ---
Subjective Progress Note Date: 11/28/18 A 43-year-old gentleman admitted with fatigue, bilateral arms and legs heaviness, dizziness. Evaluated by neurology with recommendations noted. Brain MRI reported multiple white matter lesions more noticeable on the left posterior temporal lobe, small left temporal cortical lesion with nonspecific appearance, possible demyelinating disease, vasculitis, small vessel ischemia with possible acute infarct. EF reported LV function EF between 55-60%, mild mitral regurgitation, mitral valve leaflets mildly thickened, with vegetation/pedunaclated mass on atrial aspect of the anterior mitral leaflet. Denies recent illnesses/infections. Afebrile. Cardiology consulted. MALCOM ordered. CT angiogram of head and neck pending.VSS, maintaining O2 sats in the high 90s on room air. 11/28/2018 scheduled for MALCOM this morning. Empiric Antibiotics on hold pending MALCOM results. Afebrile, normal WBC. Preliminary blood cultures no growth at 24 hours. Denies lightheadedness dizziness or focal deficits currently but does report mild dizziness last night. Denies chest pain, palpitations or shortness of breath. No nausea vomiting or diarrhea. GT/CRP unremarkable. Evaluated by infectious disease, hematology, recommendations noted and appreciated. Objective - Vital Signs Vital signs: Vital Signs Temp 98.4 F 11/28/18 08:29 Pulse 77 11/28/18 08:29 Resp 16 11/28/18 08:29 BP 117/58 11/28/18 08:29 Pulse Ox 96 11/28/18 08:29 Intake & Output 11/27/18 11/28/18 11/28/18 18:59 06:59 18:59 Intake Total 720 Balance 720 Weight 101.6 kg Intake: Oral 720 Other: Voiding Method Toilet Toilet Toilet # Voids 2 - Exam PHYSICAL EXAM: VITAL SIGNS: As above GENERAL: Sitting up in bed, no acute distress HEENT: Conjunctivae normal. eyes normal. Oral mucosa moist NECK: No JVD. No thyroid enlargement. No LNs CARDIOVASCULAR: S1, S2 regular.No murmur RESPIRATION: Breath sounds diminished in the bases. No rhonchi or crackles. ABDOMEN: Soft, nontender. No guarding. no masses palpable.Bowel sounds heard. LEGS: No edema. no swelling PSYCHIATRY: Alert and oriented X3, mood and affect normal. NERVOUS SYSTEM: Cranial N 2-12 grossly normal. Moves all 4 limbs. Diffuse weakness No focal deficits. Strength and sensation grossly intact. Skin: no lesions, no rash Microbiology 11/27/18 09:22 Blood Blood Culture - Preliminary No Growth after 24 hours 11/27/18 09:09 Blood Blood Culture - Preliminary No Growth after 24 hours 11/27/18 09:23 Blood Blood Culture - Preliminary No Growth after 24 hours - Labs CBC & Chem 7: 11/28/18 06:41 11/28/18 06:41 Assessment and Plan Assessment: -Generalized weakness ,fatigue, bilateral arms and legs heaviness with gait dysfunction , dizziness. Brain MRI reported multiple white matter lesions more noticeable on the left posterior temporal lobe, small left temporal cortical lesion with nonspecific appearance, possible demyelinating disease, vasculitis, small vessel ischemia with possible acute infarct. 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 MALCOM pending as per cardiology. Empiric antibiotics on hold as per ID pending MALCOM results. Prognosis guarded given multiple complex medical issues. The impression and plan of care has been dictated as directed. : I performed a history and examination of this patient, discussed the same with the dictator. I agree with the dictator's note ,documented as a scribe. Any additional findings or plans will be noted.
[2018-11-29 04:38] LABS: Anti-DNA, DS unit <1.0 IU/mL; Anti-Smith Ab Interp NEGATIVE (NEGATIVE); DNA Double-Stranded NEGATIVE (NEGATIVE)
[2018-11-29] MEDS: APIXABAN 5 MG TAB PO SCH (08:10)
[2018-11-29] MEDS: MULTIVITAMINS, THERA 1 EACH TAB PO SCH (08:11)
--- NOTE | 2018-11-29 13:24 | P.PN ---
Progress Note - Text Progress Note Date: 11/29/18 SUBJECTIVE/INTERVAL EVENTS: No acute overnight events. Patient underwent transesophageal echocardiogram yesterday. PHYSICAL EXAMINATION: VITAL SIGNS: Temperature 98.2 pulse rate 75 respiratory rate 16 blood pressure 112/55 O2 saturation 98% on room air GEN.: NAD, pleasant and cooperative HEENT: NCAT, sclera without icterus NECK: Supple SKIN AND EXTREMITIES: Warm to touch, no edema NEURO: MENTAL STATUS: Patient alert and oriented to self, place,. Able to name the current president. Speech fluent, able to name and repeat, following all commands readily. No right and left disorientation CRANIAL NERVES II THROUGH XII: II: Pupils are equal and reactive to light symmetrically. Visual drake are intact. III, IV, : No ptosis Extraocular movements full. Denies double vision No nystagmus. V: Facial sensation intact from V1-3. VII. face symmetric VIII: Hearing intact to finger rub bilaterally. IX, X: Symmetric palate elevation. XII: Shoulder shrug intact. XII: Tongue midline without fasciculation or atrophy. MOTOR: Normal bulk/tone. No pronator drift or tremor. Strength is 5/5 throughout all 4 extremities. SENSORY: Intact to light touch, temperature in all 4 extremities. Romberg is negative. REFLEXES: Brisk throughout. Toes are mute. Nadia's present. COORDINATION: Finger to nose intact. No dysmetria. GAIT: Normal based gait. Able to toe/heel/tandem walk. DIAGNOSTIC TESTING: LABORATORY: WBC 7.6 hemoglobin 15.6 platelets 277 sodium 137 potassium 4.3 chloride 103 bicarb 26 BUN 18 creatinine 1.14 glucose 98 CRP < 5.0 GT negative ESR <5.0 IMAGING: MRI brain w/o contrast 11/25/18: Multiple white matter lesions more noticeable in the left posterior temporal lobe. Small left temporal cortical lesion. Appearance is nonspecific. We'll consider demyelinating disease and vasculitis and small vessel ischemia with acute infarct. MRI c-spine/t-spine 11/26/18: Unremarkable. Transthoracic echocardiogram 11/26/2018: Since rhythm. Mild concentric left ventricular hypertrophy. EF 55-60% right ventricle is severely enlarged. Left atrium is moderately dilated by volume. Right atrium is mildly enlarged. Mild mitral and tricuspid regurgitation is present. No evidence of pulmonary hypertension. Mitral valves are mildly thickened. CT angiography head and neck within without contrast 11/27/2018: No evidence of dissection, aneurysm or occlusion. Moderate mid left M1 stenosis likely on basis atherosclerotic disease, but vasculitis may also be in the differential. Transesophageal echocardiogram 11/28/2018: An echo density was identified on the second scallop of the anterior mitral leaflet consistent clinically with endocarditis. 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 Evidence of moderate mitral regurg. Normal left atrial appendage. Intact interatrial septum. ASSESSMENT: Mr. Mathews is a 43 year-old man with PMHx of DVT, pulmonary embolism, Medina's palsy presenting with a one-week history of feeling "off balance." Patient with a history of DVT/PE in 2018 for which patient is on Apixaban. Patient's primary care doctor is planning to keep him on it for another year. Patient's family with a history of possible clotting disorder. Per patient, his primary care doctor has done a lot of blood workup. They thought patient may have a protein issue that was causing blood clots, but they have ruled that out. At that time, unclear etiology of patient's subjective feeling of disequilibrium. Patient denies any vertigo, double vision, and no focal deficits. His symptoms appear to have been worse when patient was driving, possible worsening with head turning. However, patient's exam shows upper motor neuron signs. Patient denies any neck pain. MRI C-spine and T-spine without contrast unremarkable. Diagnosis of multiple sclerosis less likely. CT angiogram showing moderate mid left M1 stenosis, could be atherosclerotic versus vasculitic. Patient's transthoracic echocardiogram showed multiple enlarged chambers. Transesophageal echocardiogram showed an echo density on the mitral leaflet consistent likely with endocarditis. RECOMMENDATIONS: 1. GT/CRP/Loving Ab, ds DNA Ab, ESR unremarkable 2. Continue with Apixaban 5 mg twice a day; would consider changing to a different anticoagulant as patient had stroke while on Apixaban 3. Recommend hematology/rheumatology consultation 4. If there is high concern for autoimmune etiology of endocarditis/stroke, recommend Neurosurgery consult for diagnostic angio to rule out COSTUMER vasculitis. 4. Neurology will sign off at this time. Please feel free to contact Neurology again if with additional questions or concerns.
[2018-11-29 14:02] LABS: C-ANCA <1:20 Titer (<1:20)
--- NOTE | 2018-11-29 14:09 | P.PN ---
Subjective Progress Note Date: 11/29/18 Principal diagnosis: Abnormal echocardiogram This is a pleasant 43-year-old gentleman with a past medical history significant for history of DVT/PE who currently on oral anticoagulation was admitted to the hospital with symptoms of dizziness and lightheadedness and unsteady gait. The MRI of the pain revealed multiple white matter lesions. He underwent a transthoracic echocardiogram which revealed possible vegetation on the mitral valve leaflet. Subsequently he underwent a MALCOM which revealed a vegetation on the anterior mitral leaflet. The patient underwent multiple blood cultures and all of that came in to be unremarkable. He did not have any symptoms of fever or chills. The way how is a vegetation on the anterior mitral leaflet consistent with noninfective vegetation and likely Libman Sachs vegetation which is likely related to connective tissue disease. A rheumatology consult is process to be done. Objective - Vital Signs Vital signs: Vital Signs Temp 98.3 F 11/29/18 12:08 Pulse 71 11/29/18 12:08 Resp 16 11/29/18 12:08 BP 119/72 11/29/18 12:08 Pulse Ox 98 11/29/18 12:08 Intake & Output 11/28/18 11/29/18 11/29/18 18:59 06:59 18:59 Intake Total 390 480 480 Balance 390 480 480 Weight 102 kg Intake: IV 150 Oral 240 480 480 Other: Voiding Method Toilet Toilet Toilet # Voids 2 1 3 - Constitutional General appearance: Present: no acute distress - Respiratory Respiratory: bilateral: CTA - Cardiovascular Rhythm: regular Heart sounds: normal: S1, S2 - Labs CBC & Chem 7: 11/28/18 06:41 11/28/18 06:41 Labs: Microbiology - Last 24 Hours (Table) 11/27/18 09:23 Blood Culture - Preliminary Blood No Growth after 48 hours 11/27/18 09:22 Blood Culture - Preliminary Blood No Growth after 48 hours 11/27/18 09:09 Blood Culture - Preliminary Blood No Growth after 48 hours Assessment and Plan Assessment: Assessment #1 possible Libman-Sacks vegetation on the anterior mitral leaflet #2 history of TIA Plan #1 continue the current medical regimen #2 the patient is in process of being seen by a copier repair technician
--- NOTE | 2018-11-29 14:41 | PN ---
PROGRESS NOTE DATE OF SERVICE: 11/29/2018 REASON FOR FOLLOWUP: Mitral valve vegetation. INTERVAL HISTORY: The patient is currently afebrile. The patient has been breathing comfortably. Denies having any chest pain. No shortness of breath or cough. No nausea or vomiting. No abdominal pain. No diarrhea. PHYSICAL EXAMINATION: On examination, blood pressure 119/72 with a pulse of 71, temperature 98.3. He is 98% on room air. General description is a young male lying in bed in no distress. HEENT EXAMINATION: No pallor or scleral icterus. Oral mucous membrane is dry. LUNGS: Unlabored breathing, clear to auscultation anteriorly. HEART: S1, S2. Regular rate and rhythm. No loud murmur. ABDOMEN: Soft, no tenderness. EXTREMITIES: No edema of feet. LABS: Blood cultures remain to be negative. White count, CRP and Sed rate are normal. DIAGNOSTIC IMPRESSION AND PLAN: Patient with vegetation seen on the mitral valve. This has been discussed in detail personally with the sequins stringer, Dr. Olivo, who is very confident because of the looks and the location that it is Libman Sacks endocarditis which is usually associated with lupus. Rheumatology has been consulted to get their opinion. With no clinical suspicious for infective endocarditis, no antibiotic has been started and plan for no antibiotic on discharge either. All his questions and concerns were answered. Case to be discussed with the staff psychiatrist after she evaluates the patient later this afternoon and continue supportive care. AKUA / GUILLEN: [id number] /
--- NOTE | 2018-11-29 15:14 | US ---
"EXAMINATION TYPE: US venous doppler duplex LE DATE OF EXAM: 11/29/2018 2:56 PM COMPARISON: NONE CLINICAL HISTORY: R/o dvt. History of PE and DVT, patient on blood thinners SIDE PERFORMED: Bilateral TECHNIQUE: The lower extremity deep venous system is examined utilizing real time linear array sonog dionne with graded compression, doppler sonography and color-flow sonography. VESSELS IMAGED: External Iliac Vein (EIV) Common Femoral Vein Deep Femoral Vein Greater Saphenous Vein * Femoral Vein Popliteal Vein Small Saphenous Vein * Proximal Calf Veins (* superficial vessels) Grayscale, color doppler, spectral doppler imaging performed of the deep veins of the lower extremiti es. Right Leg: Appears negative for DVT Left Leg: Positive for DVT popliteal vein IMPRESSION: 1. Positive deep venous thrombosis within the left popliteal vein. 2. No sonographic evidence of deep venous thrombosis within the right lower extremity. A [place] level critical message alert has been initiated for Sekou Devries MD via the [id number] | Critical Results System on 11/29/2018 3:11 PM. This message alert has been sent to Sekou Devries MD via the preferences provided by the clinician for the receipt of Radiology Critical Findings. [facility] ID [id number]."
--- NOTE | 2018-11-29 16:09 | P.PN ---
Subjective Progress Note Date: 11/29/18 A 43-year-old gentleman admitted with fatigue, bilateral arms and legs heaviness, dizziness. Evaluated by neurology with recommendations noted. Brain MRI reported multiple white matter lesions more noticeable on the left posterior temporal lobe, small left temporal cortical lesion with nonspecific appearance, possible demyelinating disease, vasculitis, small vessel ischemia with possible acute infarct. EF reported LV function EF between 55-60%, mild mitral regurgitation, mitral valve leaflets mildly thickened, with vegetation/pedunaclated mass on atrial aspect of the anterior mitral leaflet. Denies recent illnesses/infections. Afebrile. Cardiology consulted. MALCOM ordered. CT angiogram of head and neck pending.VSS, maintaining O2 sats in the high 90s on room air. 11/28/2018 scheduled for MALCOM this morning. Empiric Antibiotics on hold pending MALCOM results. Afebrile, normal WBC. Preliminary blood cultures no growth at 24 hours. Denies lightheadedness dizziness or focal deficits currently but does report mild dizziness last night. Denies chest pain, palpitations or shortness of breath. No nausea vomiting or diarrhea. GT/CRP unremarkable. Evaluated by infectious disease, hematology, recommendations noted and appreciated. 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 Rheumatology consult in place. Afebrile, normal WBC, preliminary blood cultures negative at 48 hours. Ambulating in hallway, reporting mild persistent dizziness. Evaluated by neurology and hematology, currently maintained on Eliquis. Doppler of bilateral lower extremities ordered. Objective - Vital Signs Vital signs: Vital Signs Temp 98.3 F 11/29/18 12:08 Pulse 71 11/29/18 12:08 Resp 16 11/29/18 12:08 BP 119/72 11/29/18 12:08 Pulse Ox 98 11/29/18 12:08 Intake & Output 11/28/18 11/29/18 11/29/18 18:59 06:59 18:59 Intake Total 390 480 480 Balance 390 480 480 Weight 102 kg Intake: IV 150 Oral 240 480 480 Other: Voiding Method Toilet Toilet Toilet # Voids 2 1 3 - Exam PHYSICAL EXAM: VITAL SIGNS: As above GENERAL: Sitting up in bed, no acute distress HEENT: Conjunctivae normal. eyes normal. Oral mucosa moist. Speech fluent, appropriate. NECK: No JVD. No thyroid enlargement. No LNs CARDIOVASCULAR: S1, S2 regular.No murmur RESPIRATION: Breath sounds diminished in the bases. No rhonchi or crackles. ABDOMEN: Soft, nontender. No guarding. no masses palpable.Bowel sounds heard. LEGS: No edema. no swelling PSYCHIATRY: Alert and oriented X3, mood and affect normal. NERVOUS SYSTEM: Cranial N 2-12 grossly normal. Moves all 4 limbs. Diffuse weakness No focal deficits. Strength and sensation grossly intact. Skin: no lesions, no rash Microbiology 11/27/18 09:23 Blood Blood Culture - Preliminary No Growth after 48 hours 11/27/18 09:22 Blood Blood Culture - Preliminary No Growth after 48 hours 11/27/18 09:09 Blood Blood Culture - Preliminary No Growth after 48 hours - Labs CBC & Chem 7: 11/28/18 06:41 11/28/18 06:41 Labs: Microbiology - Last 24 Hours (Table) 11/27/18 09:23 Blood Culture - Preliminary Blood No Growth after 48 hours 11/27/18 09:22 Blood Culture - Preliminary Blood No Growth after 48 hours 11/27/18 09:09 Blood Culture - Preliminary Blood No Growth after 48 hours Assessment and Plan Assessment: -Generalized weakness ,fatigue, bilateral arms and legs heaviness with gait dysfunction , dizziness. Brain MRI reported multiple white matter lesions more noticeable on the left posterior temporal lobe, small left temporal cortical lesion with nonspecific appearance, possible demyelinating disease, vasculitis, small vessel ischemia with suggested acute infarct. Anticoagulation as per hematology. 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 MALCOM pending as per cardiology. Bilateral Doppler ordered. Rheumatology consult in place, recommendations pending. Anticoagulation as per hematology. Statin recommendations as per neurology. Follow closely with neurology, cardiology, ID.Prognosis guarded given multiple complex medical issues. The impression and plan of care has been dictated as directed. : I performed a history and examination of this patient, discussed the same with the dictator. I agree with the dictator's note ,documented as a scribe. Any additional findings or plans will be noted.
[2018-11-29 17:37] LABS: Appearance,Urine Clear (Clear); Bilirubin,Urine Negative (Negative); Blood,Urine Negative (Negative); Color,Urine Yellow; Glucose,Urine (UA) Negative (Negative); Ketones,Urine Negative (Negative); Leukocyte Esterase,Urine Negative (Negative); Nitrite,Urine Negative (Negative); PH, Urine 5.5 (5.0-8.0); Protein,Urine Negative (Negative); Urobilinogen,Urine <2.0 mg/dL (<2.0)
[2018-11-29] MEDS: ASPIRIN 325 MG TAB PO SCH (18:40)
--- NOTE | 2018-11-29 19:34 | P.PN ---
Subjective Progress Note Date: 11/29/18 The patient denies any new complaints. He continues on Eliquis. He has not had any new neurologic complaints in terms of new focal deficits. No obvious bleeding. No fever/chills/nausea/vomiting Objective - Vital Signs Vital signs: Vital Signs Temp 98.2 F 11/29/18 15:40 Pulse 62 11/29/18 15:40 Resp 16 11/29/18 15:40 BP 137/78 11/29/18 15:40 Pulse Ox 98 11/29/18 15:40 Intake & Output 11/29/18 11/29/18 11/30/18 06:59 18:59 06:59 Intake Total 480 742 Balance 480 742 Weight 102 kg Intake: Oral 480 742 Other: Voiding Method Toilet Toilet # Voids 1 3 - Constitutional General appearance: Present: no acute distress - EENT Eyes: Present: EOMI ENT: Present: hearing grossly normal, normal oropharynx - Respiratory Respiratory: bilateral: CTA - Cardiovascular Rhythm: regular Heart sounds: normal: S1, S2 - Gastrointestinal General gastrointestinal: Present: normal bowel sounds, soft - Integumentary Integumentary: Present: normal - Neurologic Neurologic: Present: CNII-XII intact - Musculoskeletal Musculoskeletal: Present: strength equal bilaterally - Psychiatric Psychiatric: Present: A&O x's 3, appropriate affect - Labs CBC & Chem 7: 11/28/18 06:41 11/28/18 06:41 Labs: Microbiology - Last 24 Hours (Table) 11/27/18 09:23 Blood Culture - Preliminary Blood No Growth after 48 hours 11/27/18 09:22 Blood Culture - Preliminary Blood No Growth after 48 hours 11/27/18 09:09 Blood Culture - Preliminary Blood No Growth after 48 hours Assessment and Plan (1) Mitral valve vegetation Narrative/Plan: The patient's MALCOM confirms the presence of mitral valve vegetation. Given his presentation, it isn't definite possibility that this could be a source of emboli causing his TOBACCO SPRAYER findings. The etiology of this radiation is not clear. Case was discussed extensively with rheumatology, ID, and the admitting service. Infection is felt to be unlikely, given normal inflammatory markers and persistently negative cultures. Similarly serologic markers for autoimmune disease are also negative. Given his prior history, there was concern from the rheumatology standpoint about this possibly representing antiphospholipid antibody syndrome. Though a rare manifestation, this can present with endocarditis with embolic manifestations despite anticoagulation. Review of the literature confirmed case reports of the same. In my opinion, this concern appears to be reasonable. Anti phospholipid antibodies have been ordered and results are pending. In the meantime his anticoagulation will be changed to Lovenox, and aspirin added. He will also be started on IV steroids per rheumatology. It was also recommended to the admitting service that the patient be transferred to a tertiary facility. If antiphospholipid antibodies are negative, he will require additional specialized workup to determine the etiology. If they are positive, then again he may require more specialized care if he doesn't respond to current aggressive measures. They were agreeable and will request transfer. I will also order computed tomography scan of the chest abdomen and pelvis to check for occult malignancy, as noninfectious endocarditis can rarely occur as a paraneoplastic phenomenon with certain mucinous carcinomas. The patient has no suspicious signs or symptoms in this regard. Current Visit: Yes Status: Acute Code(s): I33.0 - ACUTE AND SUBACUTE INFECTIVE ENDOCARDITIS SNOMED Code(s): 355955826 (2) Pulmonary emboli Narrative/Plan: The patient was previously seen for this in 08/31. This was accompanied with a left lower extremity DVT, and appeared to be unprovoked. Therefore lifelong anticoagulation was recommended. The patient had no signs or symptoms suspicio us for malignancy at the time. CT of the chest was negative for any suspicious findings in this regard. The patient had been advised to follow-up in the office for hypercoagulable workup if he desired the same. He did not follow-up with us, but appears to have had some workup with his primary care physician. Labs from [facility] were reviewed. These were negative for protein C, protein S and antithrombin III deficiency. DRVVT screen had been positive, but was nonspecific as the patient was on anticoagulation at that time. It is not known if he had testing for other conditions in his PCPs office. Testing for antiphospholipid antibodies has already been ordered this adm ission. If these are negative, then the patient can complete hypercoagulable workup as an outpatient for the factor V Leiden mutation and prothrombin gene mutation and if these have not already been performed Current Visit: Yes Status: Chronic Code(s): I26.99 - OTHER PULMONARY EMBOLISM WITHOUT ACUTE COR PULMONALE SNOMED Code(s): 50842175 (3) Deep vein thrombosis (DVT) of left lower extremity Narrative/Plan: The patient stop her this admission has shown popliteal DVT. This is likely a chronic residual finding from his prior DVT in 08/31 which involved both the femoral and popliteal vein Current Visit: Yes Status: Chronic Code(s): I82.402 - ACUTE EMBOLISM AND THOMBOS UNSP DEEP VEINS OF L LOW EXTREM SNOMED Code(s): 532494314
[2018-11-29] MEDS: methylPREDNISolone SOD SUCCI 125 MG/2 ML VIAL IV SCH (19:52)
[2018-11-29] MEDS: IOPAMIDOL-300 CONTRAST 30 ML VIAL (ORAL USE) PO PRN ×2 (19:53→20:59)
[2018-11-29] MEDS: ENOXAPARIN 100 MG/ML SYRINGE SQ SCH (19:53)
--- NOTE | 2018-11-29 22:24 | CT ---
EXAMINATION TYPE: CT ChestAbdPelvis w con DATE OF EXAM: 11/29/2018 COMPARISON: None HISTORY: unexplained cva. suspected malignancy CT DLP: 1298.8 mGycm Automated exposure control for dose reduction was used. CONTRAST: CT scan of the chest, abdomen and pelvis is performed with Oral Contrast and with IV Contrast, patien t injected with 100 mL of Isovue 300. FINDINGS: Lungs are clear of infiltrate. There is no evidence of a pulmonary mass. There is no mediastinal fernando opathy. There are no hilar masses. Heart size is normal. Thoracic aorta shows no aneurysm. Liver spleen pancreas gallbladder appear normal. Bile ducts are not dilated. Stomach appears normal. There is no adrenal mass. There is 2 cm cortical cyst posterior right kidney. Kidneys have normal siz e. There is no hydronephrosis. There is no retroperitoneal adenopathy. Ureters are not dilated. Bladd er distends smoothly. There is no inguinal hernia. There is no free fluid in the pelvis. There is no sign of pelvic mass. Appendix is not seen. There is no sign of thickened appendix. There is no mesent agueda edema. There is no ascites or free air. There is no evidence of bowel obstruction. Thoracic and lumbar spine are intact. Bony pelvis is intact. Disc spaces are normal. There is no evidence of focal bone destruction. There is soft tissue air over the left anterior abdomen subcutaneous fat Probably relates to injectio n site. IMPRESSION: Negative CT scan of the chest abdomen pelvis. No evidence of malignancy.
[2018-11-30] MEDS: methylPREDNISolone SOD SUCCI 125 MG/2 ML VIAL IV SCH (04:19)
[2018-11-30 09:34] VITALS: RESP 17; TEMP 98.7
[2018-11-30] MEDS: MULTIVITAMINS, THERA 1 EACH TAB PO SCH (09:36)
[2018-11-30] MEDS: ENOXAPARIN 100 MG/ML SYRINGE SQ SCH (09:36)
[2018-11-30] MEDS: ASPIRIN 325 MG TAB PO SCH (09:36)
[2018-11-30 11:12] LABS: Protein, Total 6.1 g/dL (6.2-8.2)
[2018-11-30 12:00] LABS: Hepatitis C IgG Antibody Non-Reactive (Non-Reactive)
[2018-11-30 12:19] VITALS: BP 122/68; PULSE 92
[2018-11-30 14:27] LABS: Rheumatoid Factor <4 IU/mL (0-15)
--- NOTE | 2018-11-30 14:45 | P.PN ---
Subjective Progress Note Date: 11/30/18 The patient is a 43-year-old male with past medical history of DVT and pulmonary emboli, who is currently admitted for TIA. He presented to the hospital with new onset of dizziness and lightheadedness. MRI of the brain showed multiple white matter lesions. 2-D echo showed pericardial inflammation with trace pericardial effusion and possible vegetation on the mitral valve leaflet. Follow-up MALCOM confirmed vegetation on anterior mitral leaflet. Blood cultures were negative and he had no symptoms of acute infection. 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 On exam he is resting comfortably in bed. He is quite emotional and anxious, as he'll be transferred to [facility] later on today. Plan of care discussed with him and his father at bedside. He denies any chest pain, chest pressure or palpitations, dizziness, or vertigo. GENERAL: Well-appearing, well-nourished and in no acute distress. NECK: Supple without JVD or thyromegaly. LUNGS: Breath sounds clear to auscultation bilaterally. Respiration equal and unlabored. No wheezes, rales or rhonchi. HEART: Regular rate and rhythm without murmurs, rubs or gallops. S1 and S2 heard. EXTREMITIES: Normal range of motion, no edema. No clubbing or cyanosis. Peripheral pulses intact and strong. 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 #2 TIA #3 history of DVT or pulmonary emboli Plan: Patient will be transferred to [facility] Objective - Vital Signs Vital signs: Vital Signs Temp 98.7 F 11/30/18 08:20 Pulse 92 11/30/18 12:15 Resp 17 11/30/18 12:15 BP 122/68 11/30/18 12:15 Pulse Ox 99 11/30/18 12:15 Intake & Output 11/29/18 11/30/18 11/30/18 18:59 06:59 18:59 Intake Total 742 1620 480 Balance 742 1620 480 Weight 102.1 kg Intake: Oral 742 1620 480 Other: Voiding Method Toilet Toilet # Voids 3 1 2 - Labs CBC & Chem 7: 11/28/18 06:41 11/28/18 06:41 Labs: Abnormal Lab Results - Last 24 Hours (Table) 11/30/18 Range/Units 05:49 Total Protein (PEP) 6.1 L (6.2-8.2) g/dL Free [place] LC, Quant 2.12 H (0.33-1.94) mg/dL Microbiology - Last 24 Hours (Table) 11/27/18 09:23 Blood Culture - Preliminary Blood No Growth after 72 hours 11/27/18 09:22 Blood Culture - Preliminary Blood No Growth after 72 hours 11/27/18 09:09 Blood Culture - Preliminary Blood No Growth after 72 hours
[2018-12-02 10:56] LABS: Anti-Smith Ab Interp NEGATIVE (NEGATIVE); Cardiolipin Ab IgG Interp NEGATIVE (NEGATIVE); Cardiolipin Ab IgM Interp NEGATIVE (NEGATIVE); Cardiolipin IgA Antibody <0.5 U/mL; Cardiolipin IgM Antibody 0.9 U/mL; Cyclic Citrull Pep IgG Unit <0.5 U/mL; Cyclic Citrullinated Pep IgG NEGATIVE (NEGATIVE)
[2018-12-02 14:15] LABS: Albumin 3.82 g/dL (3.80-4.90); Gamma Globulin 0.77 g/dL (0.70-1.50)
[2018-12-02 14:28] LABS: APTT 41 Sec(s) (<43); Dilute Russell Viper Venom 43 Sec(s) (<44)
--- NOTE | 2018-12-03 13:29 | P.CONS ---
Past Medical History Past Medical History: Deep Vein Thrombosis (DVT), Pulmonary Embolus (PE) Additional Past Medical History / Comment(s): blood clots a year ago, bells palsy History of Any Multi-Drug Resistant Organisms: None Reported Past Surgical History: Appendectomy, Hernia Repair Additional Past Surgical History / Comment(s): right femur fracture, hand surgery Past Anesthesia/Blood Transfusion Reactions: No Reported Reaction Past Psychological History: No Psychological Hx Reported Smoking Status: Never smoker Past Alcohol Use History: None Reported Past Drug Use History: None Reported Medications and Allergies Home Medications Medication Instructions Recorded Confirmed Type Apixaban [Eliquis] 5 mg PO BID 11/25/18 11/25/18 History Loratadine [Claritin] 10 mg PO DAILY PRN 11/25/18 11/25/18 History Multivitamins, Thera [Multivitamin 1 tab PO DAILY 11/25/18 11/25/18 History (formulary)] Allergies Allergy/AdvReac Type Severity Reaction Status Date / Time ampicillin Allergy Rash/Hives Verified 11/25/18 14:02 egg Allergy Rash/Hives Verified 11/25/18 14:02 pet dander Allergy Unknown Uncoded 11/25/18 14:02 Results CBC & Chem 7: 11/28/18 06:41 11/28/18 06:41 Labs: Abnormal Lab Results - Last 24 Hours (Table) 11/30/18 Range/Units 05:49 Oozha-5-Vecrihzum 0.57 L (0.60-1.00) g/dL Microbiology - Last 24 Hours (Table) 11/27/18 09:23 Blood Culture - Final Blood No Growth after 144 hours 11/27/18 09:22 Blood Culture - Final Blood No Growth after 144 hours 11/27/18 09:09 Blood Culture - Final Blood No Growth after 144 hours Assessment and Plan (1) Vegetation of heart valve Status: Acute Code(s): I33.0 - ACUTE AND SUBACUTE INFECTIVE ENDOCARDITIS SNOMED Code(s): 070620338 (2) Deep vein thrombosis (DVT) of left lower extremity Status: Chronic Code(s): I82.402 - ACUTE EMBOLISM AND THOMBOS UNSP DEEP VEINS OF L LOW EXTREM SNOMED Code(s): 582260054 (3) Pulmonary emboli Status: Chronic Code(s): I26.99 - OTHER PULMONARY EMBOLISM WITHOUT ACUTE COR PULMONALE SNOMED Code(s): 02476600 Plan: this is a 43-year-old male admitted to [facility] and has a past history of DVT and PE and is on anticoagulation. He was admitted with symptoms of dizziness, lightheadedness and unsteady gait and MRI of the brain revealed multiple white matter lesions. During workup he had a trans-thoracic echo which revealed possible vegetation on mitral valve and a MALCOM confirmed this vegetation. Multiple blood cultures were negative and no evidence of fevers or chills or sepsis and he was diagnosed with a noninfective vegetation and poss ible Libman-Sacks endocarditis and connective tissue disease is being entertained and rheumatology was consulted for this. His labs show normal CBC and normal chemistry panel with a creatinine of 1.1 and CRP less than 5, GT negative,ANCA negative, Loving negative, double-stranded DNA negative, complements normal. The patient reports that he has had a history of DVT and PE a little over a year ago. Per the patient , at that time he presented with hemoptysis around August 2017 to [facility] and was diagnosed with left leg DVT and PE and did see hematology at that time in the hospital and was put on anticoagulation and he was recommended to have lifetime anticoagulation because the clot was unprovoked and he was told to follow up as an outpatient for more hypercoagulable workup but apparently he never followed up with them and did get some hypercoagulable workup with his primary care physician and other than a positive lupus anticoagulant nothing showed up most likely and that was related to his being on anticoagulation. He was doing fairly well until about a week ago where he felt generally unwell and had some episodes of dizziness and lightheadedness and almost felt like he was having a left-sided facial palsy. He recalls that he had facial palsy about 4 years ago which resolved and he felt this was another episode similar to that but looks that he never really had a italia facial palsy he went to [facility] on Sunday of last week and was evaluated and found nothing wrong he then went back to [facility] on Sunday and again found nothing wrong he then went to his primary care physician who told him to come to [facility] on Sunday of this week and MRI of the brain showed white matter lesions and CT angiogram was done CT abdomen of the neck and head was done which showed some mild stenosis of one of the arteries and echo showed vegetations confirmed on MALCOM. I did speak with Dr. Leonard who said his vegetation was pretty large 1 cm and it wasn't something that is usually seen in IV drug use which would be more likely right-sided and his vegetation was left-sided. I discussed this case in detail with Dr. Tanner and Dr. Leonard and Dr. Brown did discuss the case with Dr. Tanner and we are all in agreement that since this patient does not look like he is infective endocarditis and I don't feel he has connective tissue disease related problems HIS labs are negative, I think he is a candidate to be transferred out to a tertiary care center for further evaluation and treatment . I'm also concerned that he had episodes of what sounds like mini stroke and He may need more aggressive anticoagulation and I will order some more labs that were not ordered including anticardiolipin and lupus anticoagulant . Fulminant Anti-phospholipid antibody syndrome could still be a possibility. And he may have to be evaluated by thoracic surgery to remove his vegetation and if antiphospholipid antibody syndrome is a concern he may need plasmapheresis as well. After reviewing literature it does seem that antiphospholipid antibody syndrome can cause vegetations like this . I recommend that he gets transferred out and for now we will start him on IV steroids solumedrol 60mg IV every [address] Tanner will also change his anticoagulation to possibly heparin or Lovenox and will continue to try to get him transferred out. Time with Patient: Greater than 30
== END 2018-11-30 13:15 | disposition short-term general hospital (02) | DRG 69 ==
LOC: 1SOBS 12:28 → 3SCARD 21:11 → OBSVTOIN 11-27 07:12
PROVIDERS: ADMIT Family Medicine; ATTEND Family Medicine
PROC: B24BZZ4 Ultrasonography of Heart with Aorta, Transesophageal (ICD-10-PCS; principal; 2018-11-28 11:00)
DX: G45.9 Transient cerebral ischemic attack, unspecified (principal); M32.11 Endocarditis in systemic lupus erythematosus; G51.0 Bell's palsy; D18.09 Hemangioma of other sites; R48.0 Dyslexia and alexia; Z86.718 Personal history of other venous thrombosis and embolism; Z86.711 Personal history of pulmonary embolism; Z90.49 Acquired absence of other specified parts of digestive tract; Z79.01 Long term (current) use of anticoagulants; Z86.73 Personal history of transient ischemic attack (TIA), and cerebral infarction without residual deficits
CPT/HCPCS: 36415; 70496; 70498; 70551; 71260; 72141; 72146; 72148; 74177; 80048; 81003; 82164; 83883; 84165; 85025; 85613; 85652; 85730; 86038; 86140; 86146; 86147; 86160; 86162; 86200; 86225; 86235; 86255; 86334; 86431; 86705; 86803; 87040; 87340; 93306; 93312; 93320; 93325; 93970

== ENCOUNTER 2019-10-20 20:29 | Emergency (ER) | payer BC ==
[2019-10-20] MEDS ORDERED: SODIUM CHLORIDE 0.9% 1,000 ML IV STA (21:13)
[2019-10-20] MEDS ORDERED: METOCLOPRAMIDE 5 MG/ML 2 ML VIAL IVP STA (21:14)
--- NOTE | 2019-10-20 21:23 | ED ---
Headache HPI - General Chief Complaint: Headache Stated Complaint: Headache Time Seen by Provider: 10/20/19 20:49 Mode of arrival: ambulatory Limitations: no limitations - History of Present Illness Initial Comments: Patient is a 44-year-old male with history of headaches presenting to emergency Department with chief complaint of an headache. Patient states he was developed his symptoms about 2 days ago. Patient states initially started with the generalized weakness with some nausea but no vomiting. Patient also reports he developed a left-sided headache which she suspects is a sinus headache. He does report some pain along the left maxillary and frontal maxillary sinus. Patient denies any sore throat, otalgia or rhinorrhea. Denies any cough chest pain or shortness of breath. Denies any fevers or chills at home. States his daughter had the exact same symptoms prior to his. Patient states he takes Coumadin and would like to have his levels checked. Patient denies any rectal bleeding or hematuria. Denies photophobia or neck stiffness. States this was a gradual onset headache and is not the worst headache of his life. Denies any lightheadedness or dizziness or blurry vision. Denies one-sided weakness or paresthesias. - Related Data Home Medications Medication Instructions Recorded Confirmed Apixaban [Eliquis] 5 mg PO SUTUWETHSA 11/25/18 10/20/19 Loratadine [Claritin] 10 mg PO DAILY PRN 11/25/18 10/20/19 Apixaban [Eliquis] 7.5 mg PO MOFR 10/20/19 10/20/19 Allergies Allergy/AdvReac Type Severity Reaction Status Date / Time ampicillin Allergy Rash/Hives Verified 10/20/19 22:17 egg Allergy Rash/Hives Verified 10/20/19 22:17 pet dander Allergy Unknown Uncoded 10/20/19 20:37 Review of Systems ROS Statement: Those systems with pertinent positive or pertinent negative responses have been documented in the HPI. ROS Other: All systems not noted in ROS Statement are negative. Past Medical History Past Medical History: Deep Vein Thrombosis (DVT), Pulmonary Embolus (PE) Additional Past Medical History / Comment(s): blood clots a year ago, bells palsy, cardiac surgery 2019 at [facility]. History of Any Multi-Drug Resistant Organisms: None Reported Past Surgical History: Appendectomy, Hernia Repair Additional Past Surgical History / Comment(s): right femur fracture, hand surgery Past Anesthesia/Blood Transfusion Reactions: No Reported Reaction Past Psychological History: No Psychological Hx Reported Smoking Status: Never smoker Past Alcohol Use History: None Reported Past Drug Use History: None Reported General Exam Limitations: no limitations General appearance: alert, in no apparent distress Head exam: Present: atraumatic, normocephalic, normal inspection Eye exam: Present: normal appearance, PERRL, EOMI. Absent: scleral icterus, conjunctival injection, nystagmus Pupils: Present: normal accommodation ENT exam: Present: normal exam, normal oropharynx, mucous membranes moist, TM's normal bilaterally, normal external ear exam Neck exam: Present: normal inspection, full ROM. Absent: tenderness Respiratory exam: Present: normal lung sounds bilaterally. Absent: respiratory distress, wheezes, rales Cardiovascular Exam: Present: regular rate, normal rhythm, normal heart sounds GI/Abdominal exam: Present: soft. Absent: distended, tenderness, guarding Extremities exam: Present: normal inspection, full ROM, normal capillary refill, other (+2 ulnar and radial pulses bilaterally.). Absent: tenderness Back exam: Present: normal inspection, full ROM. Absent: tenderness Neurological exam: Present: alert, oriented X3, CN II-XII intact, normal gait Psychiatric exam: Present: normal affect, normal mood Skin exam: Present: warm, dry, intact, normal color Course Vital Signs 10/20/19 10/20/19 20:31 22:26 Temperature 98.8 F 97.9 F Pulse Rate 87 79 Respiratory 18 16 Rate Blood Pressure 158/66 116/69 O2 Sat by Pulse 98 99 Oximetry Medical Decision Making - Medical Decision Making Patient is a 44-year-old male presenting to the emergency department with a chief complaint of a headache. Patient initially developed some denies weakness and afterwards developed a left-sided headache. Gradual onset headache and not the worst headache of his life. Neurological examination is unremarkable. Patient requested INR levels tested. Patient has INR 3.5. He takes Coumadin. CBC CMP is unremarkable. Covid testing pending. All of the symptoms started after his daughter had the exact same ones. He was advised to follow with primary care. Return parameters were thoroughly discussed the patient is understanding and agreeable. Case discussed with physician. - Lab Data Result diagrams: 10/20/19 21:29 10/20/19 21:29 Lab Results 10/20/19 10/20/19 10/20/19 Range/Units 21:29 21:29 21:29 WBC 5.5 (3.8-10.6) k/uL RBC 5.03 (4.30-5.90) m/uL Hgb 14.4 (13.0-17.5) gm/dL Hct 43.4 (39.0-53.0) % MCV 86.3 (80.0-100.0) fL MCH 28.6 (25.0-35.0) pg MCHC 33.1 (31.0-37.0) g/dL RDW 12.9 (11.5-15.5) % Plt Count 248 (150-450) k/uL Neutrophils % 64 % Lymphocytes % 23 % Monocytes % 8 % Eosinophils % 3 % Basophils % 1 % Neutrophils # 3.5 (1.3-7.7) k/uL Lymphocytes # 1.3 (1.0-4.8) k/uL Monocytes # 0.4 (0-1.0) k/uL Eosinophils # 0.1 (0-0.7) k/uL Basophils # 0.0 (0-0.2) k/uL PT 34.2 H (9.0-12.0) sec INR 3.5 H (<1.2) APTT 37.4 H (22.0-30.0) sec Sodium 137 (137-145) mmol/L Potassium 4.3 (3.5-5.1) mmol/L Chloride 105 (98-107) mmol/L Carbon Dioxide 25 (22-30) mmol/L Anion Gap 7 mmol/L BUN 16 (9-20) mg/dL Creatinine 1.02 (0.66-1.25) mg/dL Est GFR (CKD-EPI)AfAm >90 (>60 ml/min/1.73 sqM) Est GFR (CKD-EPI)NonAf 89 (>60 ml/min/1.73 sqM) Glucose 112 H (74-99) mg/dL Calcium 9.1 (8.4-10.2) mg/dL Total Bilirubin 0.3 (0.2-1.3) mg/dL AST 25 (17-59) U/L ALT 20 (4-49) U/L Alkaline Phosphatase 74 (38-126) U/L Total Protein 6.5 (6.3-8.2) g/dL Albumin 4.1 (3.5-5.0) g/dL Disposition Clinical Impression: Headache Disposition: HOME SELF-CARE Condition: Stable Instructions (If sedation given, give patient instructions): Acute Headache (ED) Additional Instructions: Follow-up with the primary care. Return to emergency department if symptoms worsen. Stay well hydrated. Is patient prescribed a controlled substance at d/c from ED?: No Referrals: Sekou Devries MD [Primary Care Provider] - 1-2 days Time of Disposition: 22:13
[2019-10-20 21:39] LABS: Basophils % (A) 1 %; Eosinophils # (A) 0.1 k/uL (0-0.7); Eosinophils % (A) 3 %; HCT 43.4 % (39.0-53.0); HGB 14.4 gm/dL (13.0-17.5); Lymphocytes # (A) 1.3 k/uL (1.0-4.8); Lymphocytes % (A) 23 %; MCH 28.6 pg (25.0-35.0); MCHC 33.1 g/dL (31.0-37.0); MCV 86.3 fL (80.0-100.0); Mean Platelet Volume 6.6; Monocytes # (A) 0.4 k/uL (0-1.0); Monocytes % (A) 8 %; Neutrophils # (A) 3.5 k/uL (1.3-7.7); Neutrophils % (A) 64 %; Platelet Count 248 k/uL (150-450); RBC 5.03 m/uL (4.30-5.90); RDW 12.9 % (11.5-15.5); WBC 5.5 k/uL (3.8-10.6)
[2019-10-20 21:52] LABS: INR 3.5 (<1.2); Partial Thromboplastin Time 37.4 sec (22.0-30.0); Prothrombin Time 34.2 sec (9.0-12.0)
[2019-10-20 21:55] LABS: ALT 20 U/L (4-49); AST 25 U/L (17-59); African American GFR (CKD) >90 (>60 ml/min/1.73 sqM); Albumin 4.1 g/dL (3.5-5.0); Alkaline Phosphatase 74 U/L (38-126); Anion Gap 7 mmol/L; Blood Urea Nitrogen 16 mg/dL (9-20); Calcium 9.1 mg/dL (8.4-10.2); Carbon Dioxide 25 mmol/L (22-30); Chloride 105 mmol/L (98-107); Glucose 112 mg/dL (74-99); Non-African American GFR(CKD) 89 (>60 ml/min/1.73 sqM); Potassium 4.3 mmol/L (3.5-5.1); Sodium 137 mmol/L (137-145); Total Bilirubin 0.3 mg/dL (0.2-1.3); Total Protein 6.5 g/dL (6.3-8.2)
[2019-10-20 22:27] VITALS: BP 116/69; PULSE 79; RESP 16; TEMP 97.9
== END 2019-10-20 22:27 | disposition home or self-care (01) ==
LOC: EC 20:29
DX: R51 Headache (principal); Z20.828 Contact with and (suspected) exposure to other viral communicable diseases; R11.0 Nausea; R53.1 Weakness; Z86.718 Personal history of other venous thrombosis and embolism; Z86.711 Personal history of pulmonary embolism; Z79.01 Long term (current) use of anticoagulants; Z88.1 Allergy status to other antibiotic agents; Z91.012 Allergy to eggs; Z91.048 Other nonmedicinal substance allergy status
CPT/HCPCS: 99284; 96374; 96361; 36415; 80053; 85025; 85610; 85730; U0003; J2765